=== PATIENT | male | born 1980 | race American Indian/Alaskan Native ===

== ENCOUNTER 2018-12-11 06:26 | Day surgery (SDC) | payer OTHER ==
[2018-12-11 06:38] VITALS: BMI 28.7
[2018-12-11 06:46] VITALS: RESP 18
[2018-12-11] MEDS ORDERED: Lactated Ringer's 1,000 ML IV ONE (06:55)
--- NOTE | 2018-12-11 07:03 | CP.SDSHP ---
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 Patient counseled on the risks of addiction, physical or psychological dependence, and overdose associated with opioid drugs and the danger of taking opioid drugs with alcohol and other central nervous system depressants, and cautioned patient on storage and disposal. Previous Surgical History: denies - Allergies Allergies: Allergies No Known Allergies Allergy (Verified 12/11/18 06:38) - Physical Exam Vital Signs: Vital Signs 12/11/18 12/11/18 06:45 06:49 Temperature 98.1 F Pulse Rate 61 61 Respiratory 18 Rate Blood Pressure 134/79 O2 Sat by Pulse 99 Oximetry Mental Status: Alert & Oriented x3 Heart: WNL Lungs: WNL GI: WNL (medical clearance on chart) - {Optional Preform as Required} Ortho: Other (left knee: medial joint line tenderness, skin intact, no erythema, +DP/PT pulses, calves soft NT neg homans) Other Pertinent Findings: labs and MRI on chart, reviewed - Impression Impression: 38M with left knee soccer injury years ago, found to have meniscal tear, partial ACL tear for arthroscopy Pt. Evaluated Today:Candidate for Anesthesia & Procedure: Yes - Date & Time Date: 12/11/18 Time: 07:08 Short Stay Discharge - Short Stay Discharge Admitting Diagnosis/Reason for Visit: S83.512/ S83.232A/ Disposition: HOME/ ROUTINE Past Patient History - Past Medical History & Family History Past Medical History?: Yes Past Family History: Reviewed and not pertinent - Past Social History Smoking Status: Never Smoked - CARDIAC Hx Cardiac Disorders: No - PULMONARY Hx Respiratory Disorders: No - NEUROLOGICAL Hx Neurological Disorder: No - HEENT Hx HEENT Problems: No - RENAL Hx Chronic Kidney Disease: No - ENDOCRINE/METABOLIC Hx Endocrine Disorders: No - HEMATOLOGICAL/ONCOLOGICAL Hx Blood Disorders: No - INTEGUMENTARY Hx Dermatological Problems: No - MUSCULOSKELETAL/RHEUMATOLOGICAL Hx Musculoskeletal Disorders: No - GASTROINTESTINAL Hx Gastrointestinal Disorders: No - GENITOURINARY/GYNECOLOGICAL Hx Genitourinary Disorders: No - PSYCHIATRIC Hx Psychophysiologic Disorder: No Hx Emotional Abuse: No Hx Physical Abuse: No - SURGICAL HISTORY Hx Surgeries: No - ANESTHESIA Hx Anesthesia: No Hx Anesthesia Reactions: No Hx Malignant Hyperthermia: No Has any member of the family had a problem w/ anesthesia?: No
[2018-12-11] MEDS ORDERED: MethylPREDNISolone Depo 40 mg/ml Inj ONE (07:21)
[2018-12-11] MEDS ORDERED: Propofol 10 mg/ml Inj (20 ML) ONE (07:21)
[2018-12-11] MEDS ORDERED: Lidocaine 1% 5ml Abboject ONE (07:21)
[2018-12-11] MEDS ORDERED: Lidocaine 2% Jelly (5 ml) TOP ONE (07:21)
[2018-12-11] MEDS ORDERED: Midazolam 2 MG/2 ML VIAL ONE (07:21)
[2018-12-11] MEDS ORDERED: EPINEPHrine 1 mg/ml (1:1000) Inj ONE ×2 (07:22)
[2018-12-11] MEDS ORDERED: Lidocaine 1% Inj (20ml) ONE (07:22)
[2018-12-11] MEDS ORDERED: Bupivacaine 0.5% Inj(30mL) ONE (07:23)
[2018-12-11] MEDS ORDERED: Bacitracin Ointment 30 GM TUBE ONE (07:23)
[2018-12-11] MEDS ORDERED: EPINEPHrine 1 mg/ml (1:1000) Inj IV ONE (08:36)
[2018-12-11] MEDS ORDERED: Lidocaine 1% Inj (20ml) IJ ONE (08:36)
[2018-12-11] MEDS ORDERED: Morphine 1 mg/ml preservative-free Inj(Duramorph) ONE (10:04)
[2018-12-11] MEDS ORDERED: Oxycodone/Acetaminophen 5/325 mg Tab PO PRN (10:11)
[2018-12-11] MEDS ORDERED: Morphine 1 mg/ml preservative-free Inj(Duramorph) IV ONE (10:15)
[2018-12-11] MEDS ORDERED: methylPREDNISolone Depo 80 mg/ml Inj IM ONE (10:15)
[2018-12-11] MEDS ORDERED: Bupivacaine 0.5% 50 ML IJ ONE (10:15)
[2018-12-11] MEDS ORDERED: HYDROmorphone 0.5 mg/0.5 ml ISec IVP PRN (10:24)
[2018-12-11] MEDS ORDERED: Lactated Ringer's 1,000 ML IV SCH (10:30)
[2018-12-11 12:12] VITALS: O2SAT 99
--- NOTE | 2018-12-11 12:41 | PCM.SURG1 ---
Surgeon's Initial Post Op Note - Surgeon's Notes Surgeon: [facility] [employer] Director: SCARLET Krishnan Type of Anesthesia: General Endo Anesthesia Administered By: DR Benjamin Pre-Operative Diagnosis: tear meniscus. tear anterior cruciate ligament Operative Findings: partial tear Anterior cruciate ligament. complex tear medial meniscus. tear lateral meniscus. chondral eburnation/chondral defect/ostearthriits medial femoral condyle. tricomaprtmental synovitis Post-Operative Diagnosis: as above Operation Performed: arthroscopic ACL repair/reconstriuction Left knee. arthroscopic microfracture medial femoral condyle/femoral trochlea. arthroscopic partial medial/lateral meniscectomy. arthroscopic partial tricompartmental synovectomy/. intraarticular injection Specimen/Specimens Removed: synovium/cartilage/bone Estimated Blood Loss: EBL {In ML}: 10 Blood Products Given: N/A Drains Used: No Drains Post-Op Condition: Fair Date of Surgery/Procedure: 12/11/18 Time of Surgery/Procedure: 08:35 (time in room 7:50/aneathseisa induction time 7:50)
[2018-12-11 14:31] VITALS: BP 135/73; PULSE 76; TEMP 98
--- NOTE | 2018-12-12 09:33 | OP ---
PROCEDURE DATE: 12/11/2018 TIME IN PROCEDURE: 08:35 INCISION TIME; IN THE ROOM 07:50; ANESTHESIA INDUCTION TIME: 07:50 PREOPERATIVE DIAGNOSES: Tear of meniscus left knee, tear anterior cruciate left knee, chondral damage left knee. POSTOPERATIVE DIAGNOSES: Tear of meniscus left knee, tear anterior cruciate left knee, chondral damage left knee. OPERATIVE FINDINGS: 1. Partial tear, anterior cruciate ligament, left knee. 2. Complex tear of medial meniscus. 3. Tear of lateral meniscus. 4. Chondral fracture, chondral eburnation, chondral defect of medial femoral condyle and femoral trochlea. PROCEDURES: 1. Arthroscopic anterior cruciate ligament repair/reconstruction. 2. Arthroscopic microfracture, medial femoral condyle, femoral trochlea. 3. Arthroscopic partial medial and lateral meniscectomy. 4. Arthroscopic partial tricompartmental synovectomy. 5. Intra-articular injection. SURGEON: Cedric Hanley MD [employer] TRUCK DRIVER: AUSTIN Pacheco, Certified Registered Nursing Natural Resources Specialist. ANESTHESIA: General endotracheal anesthesia. ANESTHESIOLOGIST: Reinier Benjamin MD No blood products given. BLOOD LOSS: Approximately 10 mL. DRAINS: None. POSTOPERATIVE CONDITION: Stable. OPERATIVE INDICATIONS: Young Louis is a patient, well known to my practice, who presents as a 38-year-old gentleman who is employed at [employer] by [email or web address]. The patient has had persistent pain and restricted range of motion in the left knee. The patient has pain exquisite and instability of the left knee that has interfered with his activities of daily living, his ability to perform at work, even his walking and sleeping tolerance. The patient has failed conservative management consisting of physical therapy, intra-articular injection. Pros, cons, risks and benefits of surgical approach were discussed at length, the possibility of secondary surgery, possibility of mechanical failure, infection, thromboembolic disease discussed at length. The concept that the partial tear of the anterior cruciate ligament evidenced on MRI is real, the patient's instability is real, the possibility of late or secondary reconstruction of the anterior cruciate ligament was discussed. The patient can no longer withstand the discomfort and wishes the surgery to be accomplished. DESCRIPTION OF PROCEDURE: After the satisfactory induction of general endotracheal anesthesia by Dr. Benjamin, after having obtained informed consent in the above fashion, after having identified side, site and procedure and a critical pause/time-out, after the satisfactory induction of the anesthetic, the patient identified as Young Louis, in the supine position with all bony prominences well padded, the left lower extremity was prepped and free draped in usual fashion for lower extremity surgery. The tourniquet had been applied, but was not yet inflated. The lateral post was employed to the table as well. After sterilely prepping and draping, after having identified side, site and procedure and a critical pause/time-out, after the satisfactory induction of the anesthetic, the patient identified as Young Louis in the supine position, the left lower extremity was exsanguinated using a 6-inch Esmarch bandage, the tourniquet which had been applied was inflated to 350 mmHg. The joint was insufflated with 10 mL of 1% lidocaine without epinephrine. An anterolateral portal was described using #11 blade followed by spreading, followed by introduction of blunt trocar one thumbs breath lateral to the inferior pole of the patella. Upon entering the joint, there was found to be an immediate synovitis and there was evidence of immediate damage to medial meniscus with essentially a flipped meniscus and a tear of the anterior cruciate ligament. The patient also has a stenotic intercondylar notch. With the surgeon exerting a very gentle valgus stress so as to protect the medial collateral ligament using #18-gauge spinal needle followed by #11-blade followed by spreading, with the arthroscope anterolaterally, careful partial tricompartmental synovectomy was accomplished, both to improve visualization and to ablate irritative tissue. With the arthroscope anteromedially, using the large arthroscopic shaver, a partial tricompartmental synovectomy was accomplished, both to improve visualization and to ablate irritative tissue. Hemostasis was controlled with the arthroscopic wand. This having been accomplished, it should be noted that there was found to be marked defects at the medial femoral condyle and chondral damage to the femoral trochlea. Attention was first turned to the medial meniscus. With the arthroscope anterolaterally, an anterior central portal was accomplished using #18-gauge spinal needle, followed by #11 blade, followed by spreading. With the arthroscope now transferred anteromedially, careful partial tricompartmental synovectomy was continued to define the pathology in the medial compartment. Using the 4.5 arthroscopic shaver, the chondral damage in the medial femoral condyle was identified and loose cartilage fragments were removed. At this point in time, the medial meniscus was identified. There was found to be no tear in the deep posterior horn. There was found to be the aforementioned flipped meniscus which was migrating to the intercondylar notch. With the arthroscope anteromedially, the arthroscopic grasper was placed anterolaterally and using a combination of the 3.4 mm Dyonics suction punch and the arthroscopic shaver, the inner free edge of the medial meniscus was carefully debrided. The meniscal fragment having been grasped from the anteromedial portal with the grasper through the anterior central portal, the arthroscopic wand was employed and the meniscal fragment was removed and it is amputated at its base in the anterior horn. The meniscal fragments were removed. Please refer to the video photographs. The remainder of the medial meniscus was found to be examined and stable. There was found to be no evidence of peripheral separation. At this point in time, with the arthroscope anterolaterally, with the knee in [id number] position, there was found to be a tear of the inner free edge of the lateral meniscus. Using a combination of 3.4-mm Dyonics suction punch and the arthroscopic wand, a partial lateral meniscectomy was accomplished as well. With the arthroscope anterolaterally, the knee in [id number] position, the lateral compartment was exposed to advantage use of combination of 3.4 mm Dyonics suction punch and the ArthroCare wand. The inner free edge of the lateral meniscus was smoothed using the arthroscopic wand. At this point time, with the arthroscope anteromedially, using the arthroscopic bur, a notchplasty was accomplished of the medial aspect of the lateral femoral condyle. Extensive notchplasty was accomplished past the so-called resident's ridge landmark to the posterior aspect of the intercondylar notch. There was found to be ruptured and damage to least 45% to 50% of the anterior cruciate ligament and the MRI reading was accurate as of the partial tear of the anterior cruciate ligament. With the arthroscope anteromedially, using the scorpion in the fashion described by Mary Ann using the scorpion at 90 degrees to application, the FiberTape which was looped was employed to begin a modified Keiko-type suture gathering the anterior cruciate ligament. Using the arthroscopic wand at a very low thermal setting, the anterior cruciate ligament is carefully painted to allow consistency to the fibers. With the arthroscope anterolaterally, the [place] was carried out proximally and the suture shuttled anteromedially. A second loop suture tagged FiberTape was introduced orthogonally to reinforce the initial suture. This was accomplished in exactly the same way. Please refer to the video photographs. At this point in time, with the arthroscope anterolaterally, the notchplasty was modified and the position was found to be excellent. This having been accomplished, with the arthroscope anterolaterally, the guidewire was introduced and at this point in time, reaming with a 4.5 reamer was accomplished. Drilling was accomplished with the knee at 95 degrees. This having been accomplished, with the arthroscope anterolaterally, the suture anchor was loaded and it was impacted with the knee at approximately 70 degrees. This SwiveLock is introduced and the fixation was found to be excellent. Please refer to the video photographs. The arthroscopic wand was used to offer substance to the fibers and this having been accomplished, the position was found to be acceptable. At this point in time, with the arthroscope now anteromedially, using the arthroscopic shaver, the chondral damage to medial femoral condyle was defined and at this point in time, a microfracture technique was accomplished with the arthroscopic pick. The borders of the lesion are picked down through the subchondral plate to bleeding bone. This having been accomplished, loose fragments were removed with the 3.4 mm Dyonics suction punch and the arthroscopic shaver. Microfracture having been accomplished, with the arthroscope anteromedially, the knee now in full extension, debridement of the patellofemoral joint is accomplished. There was found to be marked chondral damage at the femoral trochlea. This having been accomplished using the arthroscopic shaver, the loose fragments were removed and again, the microfracture technique was accomplished with the arthroscopic pick in the same fashion. The borders were identified with the pick and then a honeycomb-type lattice was performed using the arthroscopic pick. Loose fragments were removed using a 3.4-mm Dyonics suction punch and the arthroscopic shaver. Partial tricompartmental synovectomy was accomplished. Bleeding points were controlled with the arthroscopic wand. At this point in time, the medial meniscus and lateral meniscus was smoothed using the arthroscopic wand. There was found to be no further instability or tear of the medial meniscus. The lateral meniscal tear having been addressed successfully and partial lateral meniscectomy having been accomplished, the wound was thoroughly irrigated. Closures in layers with interrupted Vicryl and nylon. Intra-articular injection of Marcaine, Duramorph and Depo-Medrol was accomplished. Chapito Josemanuel compression dressing and knee immobilizer was applied. The patient is transferred from the operating table to stretcher, having tolerated the procedure well. Cedric Hanley MD
== END 2018-12-11 14:45 | disposition home or self-care (01) ==
LOC: H.OPSURG 06:26
PROVIDERS: ATTEND Orthopaedic Surgery
DX: S83.512A Sprain of anterior cruciate ligament of left knee, initial encounter (principal); K21.9 Gastro-esophageal reflux disease without esophagitis; Y93.66 Activity, soccer; S83.242A Other tear of medial meniscus, current injury, left knee, initial encounter
CPT/HCPCS: 29880; 29888; 88304; 97116; 97161; G8978; G8979; G8980; J0171; J0690; J1030; J1040; J2250; J2270; J2704; J2765; J3010; J7120